=== PATIENT | female | born 1990 | race Caucasian/White ===

== ENCOUNTER 2025-02-24 08:18 | Inpatient (IN) | payer BC, OTHER ==
[2025-02-24] MEDS ORDERED: miSOPROStoL 200 MCG TAB PO PRN (09:32)
[2025-02-24] MEDS ORDERED: TRANEXAMIC 1,000 MG/100ML-NACL 1,000 MG in EMPTY BAG 1 BAG IV PRN (09:32)
[2025-02-24] MEDS ORDERED: METHYLERGONOVINE 0.2 MG/ML 1 ML AMP IM PRN (09:32)
[2025-02-24] MEDS ORDERED: CARBOPROST TROMETHAMINE 250 MCG/ML 1 ML AMP IM PRN (09:32)
[2025-02-24] MEDS ORDERED: OXYTOCIN 10 UNIT/ML 1 ML VIAL IM PRN (09:32)
[2025-02-24] MEDS ORDERED: miSOPROStoL 200 MCG TAB RECTAL PRN (09:32)
[2025-02-24] MEDS ORDERED: TERBUTALINE 1 MG/ML VIAL SQ PRN (09:32)
[2025-02-24 09:55] LABS: Basophils # (A) 0.06 10*3/uL (0.00-0.10); Basophils % (A) 0.4 %; Eosinophils # (A) 0.11 10*3/uL (0.04-0.35); Eosinophils % (A) 0.7 %; HCT 32.9 % (37.2-46.3); HGB 11.6 g/dL (12.0-15.0); Lymphocytes # (A) 2.07 10*3/uL (0.90-5.00); Lymphocytes % (A) 12.8 %; MCHC 35.3 g/dL (32.0-37.0); Mean Platelet Volume 11.2 fL (9.5-12.2); Monocytes # (A) 0.68 10*3/uL (0.20-1.00); Monocytes % (A) 4.2 %; Neutrophils # (A) 13.13 10*3/uL (1.80-7.70); Neutrophils % (A) 81.4 %; Platelet Count 266 10*3/uL (140-440); RBC 3.74 10*6/uL (4.10-5.20); RDW 12.8 % (11.5-14.5); WBC 16.13 10*3/uL (4.50-10.00)
[2025-02-24] MEDS: LACTATED RINGERS 1,000 ML IV SCH (09:56)
[2025-02-24] MEDS ORDERED: ROPIVACAINE 5 MG/ML 30 ML VIAL ONE (10:08)
[2025-02-24] MEDS ORDERED: SODIUM CHLORIDE 0.9% 250 ML BAG ONE (10:08)
[2025-02-24] MEDS ORDERED: fentaNYL (PF) 50 MCG/ML 5 ML AMP ONE (10:08)
[2025-02-24] MEDS: OXYTOCIN 30 UNITS/500 ML NS 30 UNIT in SALINE 1 500ML.BAG IV SCH (16:33)
[2025-02-24] MEDS ORDERED: diphenhydrAMINE 50 MG/ML 1 ML VIAL IVP PRN ×2 (17:46)
[2025-02-24] MEDS ORDERED: ZOLPIDEM 5 MG TAB PO PRN (17:46)
[2025-02-24] MEDS ORDERED: diphenhydrAMINE 25 MG CAP PO PRN (17:46)
[2025-02-24] MEDS ORDERED: SIMETHICONE 80 MG CHEWABLE PO PRN (17:46)
[2025-02-24] MEDS ORDERED: diphenhydrAMINE 50 MG CAP PO PRN (17:46)
[2025-02-24] MEDS ORDERED: HYDROCORTISONE 2.5% RECTAL CREAM 30 GM TUBE RECTAL PRN (17:46)
[2025-02-24] MEDS ORDERED: LANOLIN CREAM 1 GM TUBE TOPICAL PRN (17:46)
[2025-02-24] MEDS: LIDOCAINE 0.5% (PF) 5 MG/ML (50 ML SDV) SQ PRN (17:47)
--- NOTE | 2025-02-24 17:51 | P.PROBDLV ---
Vaginal Delivery Note - . Vaginal Delivery Note: Date of service 02/24/2025 Findings viable male infant delivered at 1756, weight of 8 pounds 0.4 ounces, Apgars of 8 and 9 at 1 and 5 minutes respectively 34-year-old G1, P0 at 38-6/7 weeks that presents to labor and delivery in active labor. Patient was admitted to labor and delivery. Patient progressed in labor becoming uncomfortable and requesting epidural. Epidural was placed without difficulty by the anesthesia department. Patient made good progress for co mplete dilation. Once completely dilated patient began pushing. After approximately 2 hours maternal exhaustion was appreciated therefore Pitocin augmentation of labor was begun. Patient continued pushing and with good maternal effort had a normal spontaneous vaginal delivery of a viable male at 1756, weight of 8 pounds 0.4 ounces, Apgars of 8 and 9 at 1 and 5 minutes respectively. Spontaneous cry was noted at . After 2-minute delay the umbilical cord was doubly clamped and cut. Placenta was delivered spontaneously intact with a three-vessel cord being noted. On inspection of the patient's vaginal vault a first-degree midline vaginal laceration was appreciated. This was injected with lidocaine and repaired in the usual fashion with 3-0 Rapide. Uterus was noted to be firm below the umbilicus. Red rubber catheter is used to drain the bladder of approximately 50 to 100 cc of clear yellow urine. All counts were noted to be correct x 2 at the end of the delivery. Patient and infant tolerated delivery well and are resting comfortably.
[2025-02-24] MEDS ORDERED: ACETAMINOPHEN TAB 500 MG TAB PO SCH (18:00)
[2025-02-25 01:05] VITALS: RESP 16; TEMP 97.9
[2025-02-25] MEDS: IBUPROFEN 800 MG TAB PO SCH (02:38)
[2025-02-25] MEDS: SENNOSIDES-DOCUSATE SODIUM 1 EACH TAB PO SCH (08:25)
--- NOTE | 2025-02-25 10:35 | P.DS ---
Providers Date of admission: 02/24/25 09:36 Expected date of discharge: 02/25/25 Attending physician: Sony Isaacs Primary care physician: Stated None - Discharge Diagnosis(es) (1) Active labor at term Current Visit: No Status: Acute (2) Normal spontaneous vaginal delivery Current Visit: Yes Status: Acute (3) Obstetric vaginal laceration with first degree perineal laceration Current Visit: Yes Status: Acute Hospital Course: This is a 34-year-old 1 now para 1 that presented to labor and delivery on 02/24 in active labor. Patient had been receiving routine care which had been essentially uncomplicated. Patient did note a history of vape use. For full details the patient please see the dictated history and physical. Patient was admitted to labor and delivery and underwent amniotomy, clear fluid was obtained. Patient had good progress toward complete dilation. Patient did receive an epidural for analgesia. Patient progressed to complete began pushing, maternal exhaustion was noted therefore Pitocin augmentation of labor was begun. Patient continued to push with excellent maternal effort had a normal spontaneous vaginal delivery of a viable male at 1726, weight of 8 pounds 5 ounces. Apgars of 8 and 9 at 1 and 5 minutes respectively. Patient did sustain a first-degree vaginal laceration which was repaired in the usual fashion with 3-0 Rapide. Patient's course has been uneventful. On this day #1 she is ambulating and voiding without difficulty. She is tolerating a regular diet without nausea or vomiting. States her pain is well-controlled. She denies concerns. She would like discharge home at 24 hours. Patient Condition at Discharge: Good Plan - Discharge Summary New Discharge Prescriptions: No Action Sertraline [Zoloft] 50 mg PO DAILY Ondansetron [Zofran] 4 mg PO Q12HR PRN PRN Reason: Nausea/Anxiety Pediatric Multivit No.203/Iron [Flintstones with Iron Tab Chew] 18 mg PO DAILY Discharge Medication List Ondansetron [Zofran] 4 mg PO Q12HR PRN 02/24/25 [History] Pediatric Multivit No.203/Iron [Flintstones with Iron Tab Chew] 18 mg PO DAILY 02/24/25 [History] Sertraline [Zoloft] 50 mg PO DAILY 02/24/25 [History] Follow up Appointment(s)/Referral(s): Sony Isaacs MD [STAFF PHYSICIAN] - 6 Weeks Patient Instructions/Handouts: Vaginal Delivery (GEN), Vaginal Delivery (DC) Activity/Diet/Wound Care/Special Instructions: [id number] ibuprofen 600 mg or 3 tablets every 6 hours as needed for pain. Routine check at 6 weeks. No tub baths or intercourse until 6 weeks . Should she have any concerns prior to this 6-week appointment she is urged to call the office and be seen prior Discharge Disposition: HOME SELF-CARE
--- NOTE | 2025-02-25 10:35 | P.HPOB ---
History of Present Illness H&P Date: 02/24/25 Chief Complaint: , active labor This is a 34-year-old 1 para 0 at 38-6/7 weeks that presents to labor and delivery with complaints of contractions. Patient states she began jessica around 130 this morning. Patient noted the contractions to become increasingly uncomfortable and closer together therefore she presented to labor and delivery around 8 AM. Patient denied loss of fluid at that time. Patient been receiving routine care which had been essentially uncomplicated. blood work this patient is a blood type of A+, group B strep culture was negative. Review of Systems Constitutional: Reports fatigue, Denies chills, Denies fever Ears, nose, mouth and throat: Denies headache Cardiovascular: Reports leg edema Respiratory: Denies dyspnea Gastrointestinal: Denies constipation, Denies diarrhea, Denies nausea, Denies vomiting Genitourinary: Reports Past Medical History Past Medical History: No Reported History History of Any Multi-Drug Resistant Organisms: None Reported Additional Past Surgical History / Comment(s): wisdom teeth removed Past Anesthesia/Blood Transfusion Reactions: No Reported Reaction Past Psychological History: No Psychological Hx Reported Smoking Status: Former smoker, Vaper Past Alcohol Use History: None Reported Past Drug Use History: None Reported - Past Family History Mother Family Medical History: No Reported History Medications and Allergies Home Medications Medication Instructions Recorded Confirmed Type Ondansetron [Zofran] 4 mg PO Q12HR PRN 02/24/25 02/24/25 History Pediatric Multivit No.203/Iron 18 mg PO DAILY 02/24/25 02/24/25 History [Flintstones with Iron Tab Chew] Sertraline [Zoloft] 50 mg PO DAILY 02/24/25 02/24/25 History Allergies Allergy/AdvReac Type Severity Reaction Status Date / Time shellfish derived [Shellfish] Allergy Unknown Verified 02/24/25 08:30 sulfamethoxazole Allergy Nausea & Verified 02/24/25 08:29 [From Bactrim] Vomiting trimethoprim [From Bactrim] Allergy Nausea & Verified 02/24/25 08:29 Vomiting Exam Osteopathic Statement: *. No significant issues noted on an osteopathic structural exam other than those noted in the History and Physical/Consult. Vital Signs Temp Pulse Resp BP 02/24/25 09:26 98.6 F 83 16 118/69 Intake and Output 02/24/25 02/24/25 02/24/25 06:59 14:59 22:59 Intake Total 1.833 Output Total 400 Balance -400 1.833 Intake: Intake, IV Titration 1.833 Amount Oxytocin 30 Units/500 ml 1.833 Ns 30 unit In Saline 1 500ml.bag @ Per Protocol IV .Q0M [facility] Rx#:[id number] Output: Urine 400 Other: Weight 79.379 kg Targeted physical exam is performed this date in general is well-nourished well- developed female in no acute distress is appreciated, abdomen is gravid, heart tones noted to be category 1, on cervical exam she was noted to be 5 cm per RN. Results Result Diagrams: 02/24/25 09:35 Abnormal Lab Results - Last 24 Hours (Table) 02/24/25 Range/Units 09:35 WBC 16.13 H (4.50-10.00) 10*3/uL RBC 3.74 L (4.10-5.20) 10*6/uL Hgb 11.6 L (12.0-15.0) g/dL Hct 32.9 L (37.2-46.3) % Immature Gran # 0.08 H (0.00-0.04) 10*3/uL Neutrophils # 13.13 H (1.80-7.70) 10*3/uL Assessment and Plan (1) Active labor at term Current Visit: No Status: Acute Code(s): LCQ3405 - SNOMED Code(s): 41981491 Plan: Admit to labor and delivery Amniotomy Clear liquids as tolerated Anticipate spontaneous vaginal delivery
[2025-02-25 16:53] VITALS: BP 120/76; PULSE 74
== END 2025-02-25 18:00 | disposition home or self-care (01) | DRG 807 ==
LOC: FBPOP 08:18 → 4FBP 09:36
PROVIDERS: ADMIT Obstetrics & Gynecology; ATTEND Obstetrics & Gynecology
PROC: 10907ZC Drainage of Amniotic Fluid, Therapeutic from Products of Conception, Via Natural or Artificial Opening (ICD-10-PCS; principal; 2025-02-24)
PROC: 0HQ9XZZ Repair Perineum Skin, External Approach (ICD-10-PCS; principal; 2025-02-24)
PROC: 10E0XZZ Delivery of Products of Conception, External Approach (ICD-10-PCS; principal; 2025-02-24)
DX: O75.81 Maternal exhaustion complicating labor and delivery (principal); O70.0 First degree perineal laceration during delivery; Z79.899 Other long term (current) drug therapy; Z87.891 Personal history of nicotine dependence; Z88.2 Allergy status to sulfonamides; Z3A.38 38 weeks gestation of pregnancy; Z37.0 Single live birth
CPT/HCPCS: 59025; 85025; 86850; 86900; 86901; 99213